=== PATIENT | male | born 1990 | race Caucasian/White ===

== ENCOUNTER 2017-03-26 00:07 | Emergency (ER) | payer OTHER ==
[2017-03-26] MEDS ORDERED: TDAP ADULT 0.5 ML INJ (BOOSTRIX) IM ONE (00:53)
--- NOTE | 2017-03-26 00:56 | EDPHY ---
H & P Stated Complaint: Laceration to top of head, hit beam. No LOC. Time Seen by Provider: 03/26/17 00:20 HPI/ROS: CHIEF COMPLAINT: scalp laceration HISTORY OF PRESENT ILLNESS: 26-year-old male presents emergency department with a laceration to the top of his head. Patient jumped and struck his head on a beam. He denies loss of consciousness, no neck pain, he remembers the entire accident, this was witnessed by friends, they report he is acting appropriate. Tetanus is not up-to-date, he denies neck pain. No other complaints. REVIEW OF SYSTEMS: A comprehensive 10 point review of systems is otherwise negative aside from elements mentioned in the history of present illness. Source: Patient Exam Limitations: No limitations - Personal History Current Tetanus/Diphtheria Vaccine: Unsure Current Tetanus Diphtheria and Acellular Pertussis (TDAP): Unsure - Medical/Surgical History Hx Asthma: No Hx Chronic Respiratory Disease: No Hx Diabetes: No Hx Cardiac Disease: No Hx Renal Disease: No Hx Cirrhosis: No Hx Alcoholism: No Hx HIV/AIDS: No Hx Splenectomy or Spleen Trauma: No Other PMH: [place] user, migraines, marijuana user. - Social History Smoking Status: Current every day smoker - Physical Exam Exam: Physical Exam Gen: Alert and Oriented, NAD HEENT: 12 cm laceration to top of scalp, pupils equal and reactive to light NECK: No C-spine tenderness CV: Tachycardic rate and regular rhythm PULM: CTAB, no wheezes NEURO: Neurologically grossly intact, normal cerebellar exam EXTREMITIES: normal appearing SKIN: 12 cm laceration to top of scalp PSYCH: answers questions appropriately. Constitutional: Initial Vital Signs Temperature (C) 36.9 C 03/26/17 00:10 Heart Rate 126 H 03/26/17 00:10 Respiratory Rate 18 03/26/17 00:10 Blood Pressure 155/100 H 03/26/17 00:10 O2 Sat (%) 97 03/26/17 00:10 O2 Delivery Mode Room Air Allergies/Adverse Reactions: Penicillins Allergy (Mild, Verified 03/26/17 00:15) Unknown Home Medications: Medication Instructions Recorded Amitriptyline HCl 03/26/17 Imitrex 03/26/17 Medical Decision Making Procedures: Procedure: Laceration repair. Verbal consent was obtained from the patient. The 12 cm laceration on the scalp was anesthetized using 1% lidocaine with epinephrine. The wound was carefully irrigated by the emergency department veterinary technician instructor. Next, the wound was prepped and draped in sterile fashion and explored to its base with a gloved finger. There were no deep structures involved. No vascular injury was identified. No foreign bodies were identified. The wound was repaired with 11. Brianne. The wound repair was simple. The procedure was performed by myself. Tetanus and antibiotic status were addressed. ED Course/Re-evaluation: This patient presents after a minor head injury with no headache, amnesia or LOC. Neurologic exam normal. No indication for neuro imaging. CHI precautions given. Differential Diagnosis: The differential diagnosis for the patient's head injury included but was not limited to concussion, skull fracture, intra-parenchymal contusion, subarachnoid , subdural and epidural hematoma. - Data Points Medications Given: Discontinued Medications Diphtheria/Tetanus/Acell Pertussis (Boostrix) 0.5 ml IM .ONCE ONE Stop: 03/26/17 00:54 Last Admin: 03/26/17 01:23 Dose: 0.5 ml Departure - Departure Disposition: Home, Routine, Self-Care Clinical Impression: Minor head injury without loss of consciousness Qualifiers: Encounter type: initial encounter Qualified Code(s): S09.90XA - Unspecified injury of head, initial encounter Scalp laceration Qualifiers: Encounter type: initial encounter Qualified Code(s): S01.01XA - Laceration without foreign body of scalp, initial encounter Condition: Good Instructions: Laceration (ED), Head Injury (ED) Additional Instructions: Return to the emergency department in 7 days for suture removal, return sooner for any signs of infection. Return to the emergency department for any forceful vomiting, confusion, difficulty walking, seizure-like activity. Referrals: Howard Sloan MD [Primary Care Provider] - As per Instructions
[2017-03-26 01:52] VITALS: BP 122/80; PULSE 110; RESP 16; TEMP 96.8; O2SAT 94
== END 2017-03-26 02:03 | disposition home or self-care (01) ==
PROC: 0HQ0XZZ Repair Scalp Skin, External Approach (ICD-10-PCS; principal; 2017-03-26)
DX: S01.01XA Laceration without foreign body of scalp, initial encounter (principal); W22.8XXA Striking against or struck by other objects, initial encounter; Y99.8 Other external cause status; Y93.39 Activity, other involving climbing, rappelling and jumping off; Z23 Encounter for immunization; F17.200 Nicotine dependence, unspecified, uncomplicated